=== PATIENT | male | born 1945 | race Caucasian/White ===

== ENCOUNTER 2023-04-25 11:45 | Emergency (ER) | payer MEDICARE, OTHER ==
[2023-04-25] MEDS ORDERED: Acetaminophen/oxyCODONE 325-5 MG Tab PO ONE (14:10)
== END 2023-04-25 14:38 | disposition home or self-care (01) ==
LOC: JD.ED 11:45
DX: M54.42 Lumbago with sciatica, left side (principal); M54.41 Lumbago with sciatica, right side
CPT/HCPCS: 99283; A9270; 99282